=== PATIENT | male | born 1990 | race Two or more races ===

== ENCOUNTER 2020-05-28 19:21 | Emergency (ER) | payer SELFPAY ==
[~2020-05-28] VITALS: Ht 177.8 cm; Wt 68.0 kg
[2020-05-28 19:21] VITALS: BP 122/69
--- NOTE | 2020-05-28 19:31 | NUR ---
RADIOLOGY AT BEDSIDE
== END 2020-05-28 20:14 | disposition home or self-care (01) ==
LOC: ER 19:26
DX: T65.891A Toxic effect of other specified substances, accidental (unintentional), initial encounter (principal); T23.51 Corrosion of first degree of thumb (nail); X58.XXXA Exposure to other specified factors, initial encounter; Y93.89 Activity, other specified; Y92.89 Other specified places as the place of occurrence of the external cause; Y99.8 Other external cause status
CPT/HCPCS: 73130-TC